=== PATIENT | female | born 1945 | race American Indian/Alaskan Native ===

== ENCOUNTER 2017-02-08 16:24 | Emergency (ER) | payer MEDICARE ==
[2017-02-08 16:35] VITALS: BP 143/90
[2017-02-08 17:02] LABS: Basophils % (Auto) 0.3 % (0.0-1.8); Hematocrit 38.1 % (30.3-42.9); Hemoglobin 12.1 gm/dl (10.1-14.3); Mean Corpuscular HGB Conc 32 % (30-34); Mean Corpuscular Hemoglobin 26 pg (28-32); Mean Corpuscular Volume 83 fl (79-97); Platelet Count 230 K/mm3 (140-440); Red Blood Count 4.58 M/mm3 (3.65-5.03); White Blood Count 7.4 K/mm3 (4.5-11.0)
--- NOTE | 2017-02-08 17:13 | Cat Scan Report ---
FINAL REPORT PROCEDURE: CT HEAD/BRAIN WO CON TECHNIQUE: Computerized tomography of the head was performed without contrast material. HISTORY: neuro deficits \T\lt; 6hrs or sx present upon awakening COMPARISON: Previous MRI of the brain 04/22/2015, prior CT scan of the brain 04/22/2015 FINDINGS: Brain: There is no evidence of intracranial hemorrhage. No parenchymal hemorrhage is seen. No mass lesions or mass effect is identified. No abnormal extra-axial fluid collections or masses are seen. Old right periventricular lacunar infarct again visualized. This is unchanged. There is some decreased density seen in the periventricular white matter without mass effect. This is fairly symmetric and does not exhibit any mass effect consistent with gliosis probably on the basis of microvascular disease or white matter changes of aging. Ventricles: The ventricles, sulcal pattern and fissures are prominent consistent with atrophy. Bones: No evidence of acute fracture. Moderate to large scalp hematoma seen in the occipital region. Paranasal sinuses: There is a calcified nodular density again visualized in 1 of the anterior ethmoid air cells on the right. This is unchanged suggesting a small osteoma. Visualized portions of the paranasal sinuses otherwise appear clear. Mastoid air cells: clear IMPRESSION: There is a moderate to large scalp hematoma in the occipital region. No evidence of skull fracture or intracranial hemorrhage. No acute intracranial abnormalities are seen. There is evidence of mild to moderate atrophy and gliosis. Old right periventricular white matter lacunar infarct again visualized.
[2017-02-08 17:14] LABS: INR 2.21 (0.87-1.13)
[2017-02-08 17:15] LABS: Partial Thromboplastin Time 40.3 Sec. (24.2-36.6)
[2017-02-08 17:26] LABS: Anion Gap 17 mmol/L; BUN/Creatinine Ratio 14; Blood Urea Nitrogen 23 mg/dL (7-17); Calcium 9.1 mg/dL (8.4-10.2); Carbon Dioxide 27 mmol/L (22-30); Chloride 103.2 mmol/L (98-107); Glucose 122 mg/dL (65-100); Potassium 4.4 mmol/L (3.6-5.0); Sodium 143 mmol/L (137-145)
[2017-02-08] MEDS ORDERED: SUBLIMAZE IV ONE (18:33)
[2017-02-08] MEDS ORDERED: TYLENOL PO ONE (18:39)
--- NOTE | 2017-02-08 18:43 | Emergency Department Report ---
ED General Adult HPI - General Chief complaint: Head Injury Stated complaint: HEAD INJURY Time Seen by Provider: 02/08/17 18:38 Source: patient Mode of arrival: Ambulatory Limitations: No Limitations - History of Present Illness Initial comments: She is a 71-year-old female past history of atrial fib, hypertension, stroke ( old left weakness) who presents with head pain. Yesterday at 1400 hrs. patient was standing on a chair trying to fix something when she lost her balance and fell backwards. Patient hit her head she didn't have any loss of consciousness she was able to angulate and had no neurologic deficits or problems with her gait. Patient's daughter brought her in to be evaluated to make sure nothing is wrong with her. Patient states that pain as a 4 out of 10 and is an achy type of pain that does not radiate nothing makes it better or worse. The patient denies any nausea or vomiting she had some scalp swelling and she is on chronic Xalerto but there is scalp swelling - Related Data Home Medications Medication Instructions Recorded Confirmed Last Taken Cyanocobalamin (Vitamin B-12) 1,000 mcg SL DAILY 04/22/15 12/04/15 Unknown [Vitamin B-12] Potassium Chloride [Klor-Con 10] 10 meq PO QID 04/22/15 12/04/15 Unknown Previous Rx's Medication Instructions Recorded Last Taken Type AtorvaSTATin [Lipitor] 80 mg PO DAILY #30 tablet 12/06/15 Unknown Rx Carvedilol [Coreg] 12.5 mg PO BID #60 tablet 12/06/15 Unknown Rx Furosemide [Lasix TAB] 40 mg PO QDAY #30 tablet 12/06/15 Unknown Rx Pantoprazole [Protonix TAB] 40 mg PO QDAY #30 tablet 12/06/15 Unknown Rx Thiamine [Vitamin B-1] 100 mg PO QDAY #30 tablet 12/06/15 Unknown Rx Xarelto 15 mg PO DAILY #30 12/06/15 Unknown Rx amLODIPine [Norvasc] 5 mg PO DAILY #30 tablet 12/06/15 Unknown Rx buPROPion SR [Wellbutrin SR] 1 tab PO BID #60 tablet 12/06/15 Unknown Rx levETIRAcetam [Keppra TAB] 500 mg PO BID #60 tablet 12/06/15 Unknown Rx Acetaminophen 500 mg PO Q6HR PRN #30 tablet 10/19/17 Unknown Rx Allergies Allergy/AdvReac Type Severity Reaction Status Date / Time No Known Allergies Allergy Unverified 04/22/15 12:44 ED Review of Systems ROS: Stated complaint: HEAD INJURY Other details as noted in HPI Constitutional: denies: chills, fever Eyes: denies: eye pain, eye discharge, vision change ENT: denies: ear pain, throat pain Respiratory: denies: cough, shortness of breath, wheezing Cardiovascular: denies: chest pain, palpitations Endocrine: no symptoms reported Gastrointestinal: denies: abdominal pain, nausea, diarrhea Genitourinary: denies: urgency, dysuria, discharge Musculoskeletal: denies: back pain, joint swelling, arthralgia Skin: denies: rash, lesions Neurological: headache. denies: weakness, paresthesias Psychiatric: denies: anxiety, depression Hematological/Lymphatic: denies: easy bleeding, easy bruising ED Past Medical Hx - Past Medical History Previous Medical History?: Yes Hx Hypertension: Yes Hx CVA: Yes (left side weakness) Additional medical history: AFIB,seizure - Surgical History Past Surgical History?: No - Social History Smoking Status: Former Smoker Substance Use Type: Prescribed - Medications Home Medications: Home Medications Medication Instructions Recorded Confirmed Last Taken Type Cyanocobalamin (Vitamin B-12) 1,000 mcg SL DAILY 04/22/15 12/04/15 Unknown History [Vitamin B-12] Potassium Chloride [Klor-Con 10] 10 meq PO QID 04/22/15 12/04/15 Unknown History AtorvaSTATin [Lipitor] 80 mg PO DAILY #30 tablet 12/06/15 Unknown Rx Carvedilol [Coreg] 12.5 mg PO BID #60 tablet 12/06/15 Unknown Rx Furosemide [Lasix TAB] 40 mg PO QDAY #30 tablet 12/06/15 Unknown Rx Pantoprazole [Protonix TAB] 40 mg PO QDAY #30 tablet 12/06/15 Unknown Rx Thiamine [Vitamin B-1] 100 mg PO QDAY #30 tablet 12/06/15 Unknown Rx Xarelto 15 mg PO DAILY #30 12/06/15 Unknown Rx amLODIPine [Norvasc] 5 mg PO DAILY #30 tablet 12/06/15 Unknown Rx buPROPion SR [Wellbutrin SR] 1 tab PO BID #60 tablet 12/06/15 Unknown Rx levETIRAcetam [Keppra TAB] 500 mg PO BID #60 tablet 12/06/15 Unknown Rx Acetaminophen 500 mg PO Q6HR PRN #30 tablet 02/08/17 Unknown Rx ED Physical Exam - General Limitations: No Limitations General appearance: alert, in no apparent distress - Head Head exam: Present: normocephalic, other (occipital scalp swelling. ) - Eye Eye exam: Present: normal appearance - ENT ENT exam: Present: mucous membranes moist - Neck Neck exam: Present: normal inspection - Respiratory Respiratory exam: Present: normal lung sounds bilaterally. Absent: respiratory distress - Cardiovascular Cardiovascular Exam: Present: regular rate, normal rhythm. Absent: systolic murmur, diastolic murmur, rubs, gallop - GI/Abdominal GI/Abdominal exam: Present: soft, normal bowel sounds - Extremities Exam Extremities exam: Present: normal inspection - Back Exam Back exam: Present: normal inspection - Neurological Exam Neurological exam: Present: alert, oriented X3 - Psychiatric Psychiatric exam: Present: normal affect, normal mood - Skin Skin exam: Present: warm, dry, intact, normal color. Absent: rash ED Course Vital Signs 02/08/17 16:29 Temperature 97.7 F Pulse Rate 62 Respiratory 22 Rate Blood Pressure 143/90 O2 Sat by Pulse 96 Oximetry ED Medical Decision Making - Lab Data Result diagrams: 02/08/17 16:48 02/08/17 16:48 Lab Results 02/08/17 02/08/17 02/08/17 Range/Units 16:48 16:48 16:48 WBC 7.4 (4.5-11.0) K/mm3 RBC 4.58 (3.65-5.03) M/mm3 Hgb 12.1 (10.1-14.3) gm/dl Hct 38.1 (30.3-42.9) % MCV 83 (79-97) fl MCH 26 L (28-32) pg MCHC 32 (30-34) % RDW 17.0 H (13.2-15.2) % Plt Count 230 (140-440) K/mm3 Lymph % (Auto) 25.4 (13.4-35.0) % Ogle % (Auto) 8.0 H (0.0-7.3) % Eos % (Auto) 2.0 (0.0-4.3) % Baso % (Auto) 0.3 (0.0-1.8) % Lymph # 1.9 (1.2-5.4) K/mm3 Ogle # 0.6 (0.0-0.8) K/mm3 Eos # 0.1 (0.0-0.4) K/mm3 Baso # 0.0 (0.0-0.1) K/mm3 Seg Neutrophils % 64.3 (40.0-70.0) % Seg Neutrophils # 4.8 (1.8-7.7) K/mm3 PT 25.6 H (12.2-14.9) Sec. INR 2.21 H (0.87-1.13) APTT 40.3 H (24.2-36.6) Sec. Thrombin Time (15.1-19.6) Sec. Sodium 143 (137-145) mmol/L Potassium 4.4 (3.6-5.0) mmol/L Chloride 103.2 (98-107) mmol/L Carbon Dioxide 27 (22-30) mmol/L Anion Gap 17 mmol/L BUN 23 H (7-17) mg/dL Creatinine 1.7 H (0.7-1.2) mg/dL Estimated GFR 36 ml/min BUN/Creatinine Ratio 14 % Glucose 122 H (65-100) mg/dL Calcium 9.1 (8.4-10.2) mg/dL Troponin T < 0.010 (0.00-0.029) ng/mL 02/08/17 Range/Units 16:48 WBC (4.5-11.0) K/mm3 RBC (3.65-5.03) M/mm3 Hgb (10.1-14.3) gm/dl Hct (30.3-42.9) % MCV (79-97) fl MCH (28-32) pg MCHC (30-34) % RDW (13.2-15.2) % Plt Count (140-440) K/mm3 Lymph % (Auto) (13.4-35.0) % Ogle % (Auto) (0.0-7.3) % Eos % (Auto) (0.0-4.3) % Baso % (Auto) (0.0-1.8) % Lymph # (1.2-5.4) K/mm3 Ogle # (0.0-0.8) K/mm3 Eos # (0.0-0.4) K/mm3 Baso # (0.0-0.1) K/mm3 Seg Neutrophils % (40.0-70.0) % Seg Neutrophils # (1.8-7.7) K/mm3 PT (12.2-14.9) Sec. INR (0.87-1.13) APTT (24.2-36.6) Sec. Thrombin Time 16.3 (15.1-19.6) Sec. Sodium (137-145) mmol/L Potassium (3.6-5.0) mmol/L Chloride (98-107) mmol/L Carbon Dioxide (22-30) mmol/L Anion Gap mmol/L BUN (7-17) mg/dL Creatinine (0.7-1.2) mg/dL Estimated GFR ml/min BUN/Creatinine Ratio % Glucose (65-100) mg/dL Calcium (8.4-10.2) mg/dL Troponin T (0.00-0.029) ng/mL - EKG Data -: EKG Interpreted by Me - EKG Data 02/08/17 18:43 EKG shows regular rate and irregular irregular rhythm for A. fib no T-wave inversion normal access no ST segment elevation 02/08/17 18:44 - Radiology Data Radiology results: report reviewed, image reviewed CT head: Shows no acute intracranial abnormality moderate to large scalp hematoma. - Medical Decision Making Chief medical diagnosis: Scalp hematoma Differential medical diagnosis: Subarachnoid hemorrhage, subdural hematoma CBC, CMP, EKG, oral pain medication, EKG, troponin Patient's laboratory work is unremarkable patient is therapeutic on her INR. Patient's fall was yesterday and scalp hematoma has resolved all her outpatient continual taking anticoagulation. Discussed plan with patient and her daughter. I will send patient home with follow-up with her PCP patient can go home with Tylenol. Critical care attestation.: If time is entered above; I have spent that time in minutes in the direct care of this critically ill patient, excluding procedure time. ED Disposition Clinical Impression: Chronic atrial fibrillation Headache Qualifiers: Headache type: post-traumatic Headache chronicity pattern: acute headache Intractability: not intractable Qualified Code(s): G44.319 - Acute post- traumatic headache, not intractable Scalp hematoma Qualifiers: Encounter type: initial encounter Qualified Code(s): S00.03XA - Contusion of scalp, initial encounter Disposition: DC- TO HOME OR SELFCARE Is pt being admited?: No Does the pt Need Aspirin: No Condition: Stable Instructions: Scalp Contusion in Adults (ED) Prescriptions: Acetaminophen 500 mg PO Q6HR PRN #30 tablet PRN Reason: Pain Referrals: NOHEMI TODD MD [Staff Physician] - 3-5 Days
== END 2017-02-08 18:54 | disposition home or self-care (01) ==
LOC: ED 16:24
DX: S00.03XA Contusion of scalp, initial encounter (principal); G44.319 Acute post-traumatic headache, not intractable; I48.2 Chronic atrial fibrillation; I10 Essential (primary) hypertension; Z86.73 Personal history of transient ischemic attack (TIA), and cerebral infarction without residual deficits; R56.9 Unspecified convulsions; Z87.891 Personal history of nicotine dependence; W07.XXXA Fall from chair, initial encounter; Y93.89 Activity, other specified; Y92.89 Other specified places as the place of occurrence of the external cause; Y99.8 Other external cause status
CPT/HCPCS: 36415; 70450; 80048; 84484; 85025; 85610; 85670; 85730; 93005; 93010